=== PATIENT | male | born 1990 | race Caucasian/White ===

== ENCOUNTER 2021-10-15 16:36 | Emergency (ER) | payer OTHER ==
[~2021-10-15] VITALS: Ht 175.3 cm; Wt 74.8 kg
[2021-10-15 16:53] VITALS: BP 122/80
[2021-10-15] MEDS ORDERED: ALBUTEROL SULFATE/IPRATROPIU 3 ML SOL IH ONE ×2 (19:00→20:11)
[2021-10-15] MEDS ORDERED: NEBU1EAC30 MC (20:25)
[2021-10-15] MEDS ORDERED: ALBU0.0912 IH (20:25)
[2021-10-15] MEDS ORDERED: PRON INH (20:25)
[2021-10-15] MEDS ORDERED: PRED20TA5 PO (20:25)
--- NOTE | 2021-10-15 21:20 | NUR ---
PT SATURATION 92% ON RA, WES JOHNSON MADE AWARE.
[2021-10-15] MEDS ORDERED: predniSONE 20 MG TAB PO ONE (21:30)
--- NOTE | 2021-10-15 21:45 | NUR ---
SWAB COLLECTED AND GIVEN TO JAMES.
--- NOTE | 2021-10-15 22:15 | NUR ---
PER WES JOHNSON, PT CLEARED FOR DISCHARGE.
[2021-10-15 22:30] VITALS: BP 122/80
--- NOTE | 2021-10-15 22:30 | NUR ---
Patient discharged with v/s stable. Written and verbal after care instructions given and explained. Patient alert, oriented and verbalized understanding of instructions. Ambulatory with steady gait. All questions addressed prior to discharge. ID band removed. Patient advised to follow up with PMD. Rx of ALBUTEROL, NEBULIZER, PREDNISON, ALBUTEROL MDI, given. Patient educated on indication of medication including possible reaction and side effects. Opportunity to ask questions provided and answered.
== END 2021-10-15 22:30 | disposition home or self-care (01) ==
LOC: MED 16:36
DX: J45.901 Unspecified asthma with (acute) exacerbation (principal); Z20.822 Contact with and (suspected) exposure to COVID-19
CPT/HCPCS: 71045; 87426; 94640; 99284; J7512